=== PATIENT | female | born 1955 | race Caucasian/White ===

== ENCOUNTER 2016-10-24 16:25 | Emergency (ER) | payer MEDICARE ==
--- NOTE | 2016-10-24 16:58 | ER Document Report ---
ED Medical Screen (RME) - General Stated Complaint: RASH Time seen by provider: 16:55 Mode of Arrival: Ambulatory Information source: Patient Notes: 61-year-old female presents to ED for rash to her face, neck, head, and back that itches with blisters on the inside of her mouth for the last 2 weeks. States it is itching worse today states she hasn't taken anything yet for the rash. States she also has jaw pain from her teeth. I have greeted and performed a rapid initial assessment of this patient. A comprehensive ED assessment and evaluation of the patient, analysis of test results and completion of medical decision making process will be conducted by an additional ED providers. TRAVEL OUTSIDE OF THE [place] IN LAST 30 DAYS: No - Related Data Allergies/Adverse Reactions: No Known Allergies Allergy (Verified 10/24/16 16:55) Past Medical History - Past Medical History Cardiac Medical History: Reports: Hx Hypercholesterolemia, Hx Hypertension Denies: Hx Coronary Artery Disease, Hx Heart Attack Pulmonary Medical History: Denies: Hx Asthma, Hx Bronchitis, Hx COPD, Hx Pneumonia Neurological Medical History: Denies: Hx Cerebrovascular Accident, Hx Seizures GI Medical History: Denies: Hx Hepatitis, Hx Hiatal Hernia, Hx Ulcer Musculoskeltal Medical History: Denies Hx Arthritis, Reports Hx Fibromyalgia Psychiatric Medical History: Reports: Hx Depression Infectious Medical History: Denies: Hx Hepatitis Past Surgical History: Reports: Hx Orthopedic Surgery - Left wrist. Denies: Hx Mastectomy, Hx Open Heart Surgery, Hx Pacemaker - Immunizations Immunizations up to date: Yes Hx Diphtheria, Pertussis, Tetanus Vaccination: Yes
--- NOTE | 2016-10-24 18:39 | ER Document Report ---
ED General - General Mode of Arrival: Ambulatory Information source: Patient TRAVEL OUTSIDE OF THE [place] IN LAST 30 DAYS: No - HPI Onset: Other - see HPI - General Chief Complaint: Rash Stated Complaint: RASH Notes: Patient is a 61-year-old female presenting to the emergency department with complaints of a possible rash, possible lice, and some blisters to her mouth. Patient states that she was at a friend's house and was told that he had lice. Patient is concerned that she might possibly have lice now that she was in contact with the other person. Patient also states she has some dental abscesses and is wondering what will happen if she does not get them taken care of by a dentist. Patient complains of some unremarkable blisters to her face around her mouth. Patient does not seem to be in any emergent distress. Patient has no known allergies. (EMILIO MAZARIEGOS) - Related Data Allergies/Adverse Reactions: No Known Allergies Allergy (Verified 10/24/16 16:55) Past Medical History - General Information source: Patient - Social History Smoking Status: Current Every Day Smoker Chew tobacco use (# tins/day): No Frequency of alcohol use: None Drug Abuse: None Family History: None Patient has suicidal ideation: No Patient has homicidal ideation: No - Past Medical History Cardiac Medical History: Reports: Hx Hypercholesterolemia, Hx Hypertension Musculoskeltal Medical History: Reports Hx Fibromyalgia Psychiatric Medical History: Reports: Hx Depression Past Surgical History: Reports: Hx Orthopedic Surgery - Left wrist - Immunizations Immunizations up to date: Yes Hx Diphtheria, Pertussis, Tetanus Vaccination: Yes Review of Systems - Review of Systems Constitutional: No symptoms reported EENT: See HPI Cardiovascular: No symptoms reported Respiratory: No symptoms reported Gastrointestinal: No symptoms reported Genitourinary: No symptoms reported Female Genitourinary: No symptoms reported Musculoskeletal: No symptoms reported Skin: See HPI Hematologic/Lymphatic: No symptoms reported Neurological/Psychological: No symptoms reported -: Yes All other systems reviewed and negative Physical Exam - Vital signs Interpretation: Normal - General General appearance: Appears well, Alert In distress: Mild - HEENT Head: Normocephalic, Atraumatic Eyes: Normal Pupils: PERRL Mucous membranes: Normal - Respiratory Respiratory status: No respiratory distress Chest status: Nontender Breath sounds: Normal Chest palpation: Normal - Cardiovascular Rhythm: Regular Heart sounds: Normal auscultation Murmur: No - Abdominal Inspection: Normal Distension: No distension Bowel sounds: Normal Tenderness: Nontender Organomegaly: No organomegaly - Back Back: Normal, Nontender - Extremities General upper extremity: Normal inspection, Normal ROM, Normal strength General lower extremity: Normal inspection, Normal ROM, Normal strength - Neurological Neuro grossly intact: Yes Cognition: Normal Orientation: AAOx4 [place] Coma Scale Eye Opening: Spontaneous [place] Coma Scale Verbal: Oriented [place] Coma Scale Motor: Obeys Commands [place] Coma Scale Total: 15 Speech: Normal - Psychological Associated symptoms: Normal affect, Normal mood - Skin Skin Temperature: Warm Skin Moisture: Dry Course - Re-evaluation Re-evalutation: 10/24/16 Patient is a 61-year-old female who comes in with multiple complaints. I do not see any life of the patient. I do not see any infectious rash on the patient requiring treatment today. The patient has a history of poor dentition , is using Listerine, and has follow-up with the dentist scheduled. No evidence for trench mouth. Patient will be discharged home is to follow-up with her doctor. (ZELDA RIDDLE) - Vital Signs Vital signs: Temp Pulse Resp BP Pulse Ox 97.7 F 96 20 146/82 H 98 10/24/16 19:13 10/24/16 19:13 10/24/16 19:13 10/24/16 19:13 10/24/16 19:13 (EMILIO MAZARIEGOS) (ZELDA RIDDLE) Discharge - Discharge Clinical Impression: Lip lesion, Dental caries Condition: Stable Disposition: HOME, SELF-CARE Instructions: Toothache ([facility]) Additional Instructions: Please follow-up with your doctor and a dentist. There is no evidence for lice today. Referrals: [Primary Care Provider] - Follow up as needed Scribe Attestation: 10/24/16 21:34 I personally performed the services described in the documentation, reviewed and edited the documentation which was dictated to the scribe in my presence, and it accurately records my words and actions. (ZELDA RIDDLE) Scribe Documentation - Scribe Written by Scribemmanuelle:: Emilio Mazariegos 10/24/16 20:30 acting as scribe for :: Yoshi
[2016-10-24 19:18] VITALS: BP 146/82
== END 2016-10-24 19:00 | disposition home or self-care (01) ==
LOC: ER 16:25
DX: K02.9 Dental caries, unspecified (principal); K13.70 Unspecified lesions of oral mucosa; R21 Rash and other nonspecific skin eruption; F17.200 Nicotine dependence, unspecified, uncomplicated; E78.00 Pure hypercholesterolemia, unspecified; I10 Essential (primary) hypertension
CPT/HCPCS: 99282